=== PATIENT | female | born 1945 | race Caucasian/White ===

== ENCOUNTER 2017-03-11 18:35 | Observation (INO) | payer MEDICARE ==
[2017-03-11 19:03] LABS: Mean Cell Volume 73.4 fl (78-100); Mean Corpuscular Hemoglobin 22.2 pg (26-32); Mean Platelet Volume 8.5 fl (6-9.5); Platelet Count 431 K/mm3 (150-450); Red Cell Distribution Width 20.4 % (11.5-14.0); White Blood Count 14.3 K/mm3 (4.0-10.5)
[2017-03-11 19:06] LABS: VBG BASE EXCESS 5.2 (-2.0-2.0); VBG CARBOXYHEMOGLOBIN 2.4 % T HGB (0.0-6.9); VBG HCO3- 35.6 meq/L (22-28); VBG HEMOGLOBIN 13.6; VBG O2 SATURATION 53.5 (95-100); VBG POTASSIUM 5.4 (3.5-5.1)
[2017-03-11 19:07] LABS: VBG pH 7.24 (7.32-7.42)
[2017-03-11 19:14] LABS: Bilirubin NEGATIVE (NEGATIVE); Blood NEGATIVE Ery/ul (0-5); COMPLETE URINE MICROSCOPIC? YES; Collection Type CATH; Glucose NEGATIVE (NEGATIVE); Leukocyte Esterase 1+ (NEGATIVE)
[2017-03-11 19:15] LABS: ADD URINE CULTURE? YES (NO); Bacteria MANY /HPF (NEGATIVE); Epithelial Cells FEW /HPF (FEW); WBC 15-25 /HPF (0-5)
[2017-03-11] MEDS ORDERED: DUONEB 0.5-3 MG/3 ml Neb IH ONE ×2 (19:20)
[2017-03-11] MEDS ORDERED: D50W 50 ml Abboject IV ONE ×2 (19:21→19:25)
[2017-03-11] MEDS ORDERED: Sodium Chloride 0.9% 1000 ML 1,000 ML ONE (19:24)
--- NOTE | 2017-03-11 19:29 | ERPHSYRPT ---
- History of Present Illness Time Seen by Provider: 03/11/17 18:45 Source: patient Exam Limitations: no limitations Patient Subjective Stated Complaint: PT CALLED EMS TO SCENE DUE TO LOW BLOOD SUGAR-IN THE 50'S-PT ATE JELLY ET PEANUT BETTER-FSBS 66-UPON ARRIVAL PT WAS SOB- LOW SPO2-PT REPORTS DIARRHEA FOR THE LAST FEW DAYS Triage Nursing Assessment: PT PALE WARM ET [id number] TO ANSWER QUESTIONS- PT BECOMES WINDED WITH A FULL SENTENCE OR MOVEMENT-NO RETRACTIONS NOTED-PT DENIES PAIN-PT STATES SHE WAS GIVEN AN ANTIOBIOTIC FOR UTI BUT HAS NOT STARTED TAKING IT YET Physician History: 71-year-old white female brought by medics with complaints of low blood sugars to 50 at home patient was noted to be somewhat sleepy medics were summoned to the patient ate peanut butter and jelly arrives with a blood sugar of 66. Patient currently alert patient did have oxygen saturation down into the 80s. Patient states she has been having wheezing cough or shortness of breath for several days diarrhea for several days she denies any chest pain she denies any fevers she has no abdominal pain nausea or vomiting. Past medical history includes asthma, angina, high blood pressure anxiety, depression, diabetes mellitus past surgical history includes.tonsillectomy and adenoidectomy and parathyroid surgery Timing/Duration: day(s) (2-3 days short of breath diarrheah, today decreased blood sugar) Severity: moderate Modifying Factors: Improves With: nothing Associated Symptoms: shortness of breath, cough, malaise, No nausea, No vomiting , No abdominal pain, No heartburn, No diaphoresis, No chills, No chest pain, No fever, No headaches, No loss of appetite, No rash, No syncope, No seizure, No weakness Allergies/Adverse Reactions: codeine Allergy (Intermediate, Verified 03/11/17 18:40) Hives Home Medications: Albuterol Sulfate [Ventolin Hfa] 8 gm IH TID 03/11/17 [History] Alprazolam [Xanax Xr] 0.5 mg PO TID 03/11/17 [History] Fluticasone/Salmeterol [Advair 250-50 Diskus] 1 each IH UD 03/11/17 [History] Furosemide 40 mg [Lasix 40 MG] 40 mg PO DAILY 03/11/17 [History] Glimepiride [Amaryl] 1 mg PO DAILY 03/11/17 [History] Levothyroxine Sodium 25 Mcg [Synthroid 25 Mcg] 25 mcg PO DAILY 03/11/17 [ History] Linagliptin [Tradjenta] 5 mg PO DAILY 03/11/17 [History] Lisinopril 10 mg [Zestril 10 MG] 10 mg PO DAILY 03/11/17 [History] Meloxicam 7.5 mg PO BID 03/11/17 [History] Metformin HCl [Metformin HCl ER] 1,000 mg PO BID 03/11/17 [History] Metoprolol Succinate 50 mg [Toprol Xl 50 MG] 50 mg PO DAILY 03/11/17 [ History] Montelukast Sodium 10 mg [Singulair 10 MG] 10 mg PO DAILY 03/11/17 [History] Paroxetine HCl [Paxil] 30 mg PO DAILY 03/11/17 [History] Potassium Chloride 10 Meq Tab* [Klor Con 10 MEQ] 10 meq PO DAILY 03/11/17 [ History] Simvastatin 20Mg [Zocor 20Mg] 20 mg PO DAILY 03/11/17 [History] Tolterodine Tartrate 2 mg [Detrol 2 MG] 2 mg PO DAILY 03/11/17 [History] Verapamil HCl [Verapamil ER] 240 mg PO DAILY 03/11/17 [History] Hx Tetanus, Diphtheria Vaccination/Date Given: No Hx Influenza Vaccination/Date Given: Yes (2015) Hx Pneumococcal Vaccination/Date Given: No Immunizations Up to Date: Yes - Review of Systems Constitutional: Malaise, No Fever, No Chills Eyes: No Symptoms Ears, Nose, & Throat: No Symptoms Respiratory: Cough, Dyspnea, Wheezing, No Cyanosis, No Dyspnea on Exertion (BYERS) Cardiac: No Chest Pain, No Edema, No Syncope Abdominal/Gastrointestinal: Diarrhea, No Abdominal Pain, No Nausea, No Vomiting , No Constipation, No Hematemesis, No Hematochezia, No Melena, No Dysphagia, No Appetite Changes Genitourinary Symptoms: No Dysuria Musculoskeletal: No Back Pain, No Neck Pain Skin: No Rash Neurological: Other (patient sleepy at home just prior to arrival with low blood sugars), No Dizziness, No Focal Weakness, No Sensory Changes Psychological: No Symptoms Endocrine: No Symptoms All Other Systems: Reviewed and Negative - Past Medical History Pertinent Past Medical History: Yes Cardiac History: Angina, Hypertension Respiratory History: Asthma Psycho-Social History: Anxiety, Depression - Past Surgical History Past Surgical History: Yes Other Surgical History: PARATHYROID - Social History Smoking Status: Never smoker Exposure to second hand smoke: No Drug Use: none Patient Lives Alone: No - Nursing Vital Signs Nursing Vital Signs: Initial Vital Signs Temperature 97.5 F 03/11/17 18:50 Pulse Rate 91 H 03/11/17 18:50 Respiratory Rate 24 03/11/17 18:50 Blood Pressure 145/76 03/11/17 18:50 O2 Sat by Pulse Oximetry 80 L 03/11/17 18:50 Pain Scale Pain Intensity 6 - Physical Exam General Appearance: no apparent distress, alert, other (morbidly obese white female alert oriented x 3) Eye Exam: PERRL/EOMI, eyes nml inspection Ears, Nose, Throat Exam: normal ENT inspection, TMs normal, pharynx normal, moist mucous membranes Neck Exam: normal inspection, non-tender, supple, full range of motion Respiratory Exam: diminished breath sounds Cardiovascular Exam: regular rate/rhythm, normal heart sounds, normal peripheral pulses Gastrointestinal/Abdomen Exam: soft, normal bowel sounds, No tenderness, No mass Back Exam: normal inspection, normal range of motion, No CVA tenderness, No vertebral tenderness Extremity Exam: normal inspection, normal range of motion, pelvis stable Neurologic Exam: alert, oriented x 3, cooperative, normal mood/affect, nml cerebellar function, nml station & gait, sensation nml, No motor deficits Skin Exam: normal color, warm, dry, No rash SpO2 Interpretation: normal (80%) SpO2: 80 Oxygen Delivery: Nasal Cannula - Course Nursing assessment & vital signs reviewed: Yes EKG Interpreted by Me: RATE (91 bpm), Sinus Rhythm, 1st degree AV Block, Other ( EKG sinus rhythm with first-degree AV block, normal axis no acute ST or T wave changes) - Radiology Exams Chest X-ray Interpretation: Interpreted by me, Other (decreasedinspiratory phase . Changes secondary to obesity, possible mild failure) Ordered Tests: Active Orders 24 hr Category Date Time Status Accucheck STAT Care 03/11/17 19:13 Active Blow Down Helper STAT Care 03/11/17 18:46 Active Cath for Specimen-Straight STAT Care 03/11/17 18:46 Active EKG-ER Only STAT Care 03/11/17 18:45 Active IV Insertion STAT Care 03/11/17 18:45 Active Oxygen-ED Only NASAL CANNULA 5 lpm Care 03/11/17 18:48 Active Pulse Oximetry (ED) STAT Care 03/11/17 18:45 Active CHEST 1 VIEW (PORTABLE) Stat Exams 03/11/17 18:45 Taken BLOOD CULTURE Stat Lab 03/11/17 19:40 Received CBC W DIFF Stat Lab 03/11/17 18:50 Completed CMP Stat Lab 03/11/17 18:50 Completed CULTURE,SPUTUM Stat Lab 03/11/17 19:23 Uncollected CULTURE,URINE Stat Lab 03/11/17 18:58 Received D-DIMER QUANTITATION Stat Lab 03/11/17 18:50 Completed Lactic Acid Stat Lab 03/11/17 18:59 Completed Manual Differential NC Stat Lab 03/11/17 18:50 Completed NT PRO BNP Stat Lab 03/11/17 18:50 Completed PROTIME WITH INR Stat Lab 03/11/17 20:01 Ordered PTT Stat Lab 03/11/17 20:01 Ordered TROPONIN Q3H Lab 03/11/17 18:50 Completed TROPONIN Q3H Lab 03/11/17 21:45 Ordered TROPONIN Q3H Lab 03/12/17 00:45 Ordered TROPONIN Q3H Lab 03/12/17 03:45 Ordered TROPONIN Q3H Lab 03/12/17 06:45 Ordered UA W/ MICROSCOPIC Stat Lab 03/11/17 18:58 Completed VENOUS BLOOD GAS Stat Lab 03/11/17 18:45 Completed Respiratory Nebulizer STAT RT 03/11/17 19:20 Completed Medication Summary Generic Name Dose Route Start Last Admin Trade Name Freq PRN Reason Stop Dose Admin Enoxaparin Sodium 140 mg 03/11/17 20:15 Enoxaparin Sodium 1 mg/kg (140 mg) 04/10/17 20:14 SQ Q12H SONYA Sodium Chloride 1,000 mls @ 100 mls/hr 03/11/17 19:30 03/11/17 19:54 Sodium Chloride 0.9% 1000 Ml IV 04/10/17 19:29 100 mls/hr .Q10H SONYA Administration Discontinued Medications Generic Name Dose Route Start Last Admin Trade Name Freq PRN Reason Stop Dose Admin Albuterol/Ipratropium 3 ml 03/11/17 19:20 03/11/17 19:28 Duoneb 0.5-3 Mg/3 Ml Neb IH 03/11/17 19:21 3 ml STAT ONE Administration Albuterol/Ipratropium Confirm 03/11/17 19:20 Duoneb 0.5-3 Mg/3 Ml Neb Administered 03/11/17 19:21 Dose 3 ml IH .STK-MED ONE Dextrose 50 ml 03/11/17 19:21 03/11/17 19:54 D50w 50 Ml Abboject IV 03/11/17 19:22 50 ml STAT ONE Administration Dextrose Confirm 03/11/17 19:25 D50w 50 Ml Abboject Administered 03/11/17 19:26 Dose 50 ml IV .STK-MED ONE Furosemide 40 mg 03/11/17 19:57 03/11/17 20:01 Lasix 40 Mg/4 Ml IV 03/11/17 19:58 40 mg STAT ONE Administration Furosemide Confirm 03/11/17 20:00 Lasix 40 Mg/4 Ml Administered 03/11/17 20:01 Dose 40 mg .ROUTE .STK-MED ONE Ceftriaxone Sodium/Dextrose 1 g in 50 mls @ 100 mls/hr 03/11/17 19:32 19:48 Rocephin 1 Gm-D5w 50 Ml Bag IV 03/11/17 20:01 100 mls/hr STAT STA Administration Ceftriaxone Sodium/Dextrose Confirm 03/11/17 19:45 Rocephin 1 Gm-D5w 50 Ml Bag Administered 03/11/17 19:46 Dose 1 g in 50 mls @ ud IV .STK-MED ONE Lab/Rad Data: Laboratory Result Diagrams 03/11/17 18:50 03/11/17 18:50 Laboratory Results 03/11/17 03/11/17 03/11/17 Range/Units 18:59 18:58 18:50 WBC (4.0-10.5) K/mm3 RBC (4.1-5.4) M/mm3 Hgb (12.0-16.0) gm/dl Hct (35-47) % MCV (78-100) fl MCH (26-32) pg MCHC (32-36) g/dl RDW (11.5-14.0) % Plt Count (150-450) K/mm3 MPV (6-9.5) fl D-Dimer 1540 H* (0-500) ng/mL VBG pH (7.32-7.42) VBG pCO2 at Pat Temp (42-55) mm/Hg VBG pO2 at Pat Temp (25-40) mm/Hg VBG HCO3 (22-28) meq/L VBG O2 Sat (Susan) (95-100) VBG Base Excess (-2.0-2.0) VBG Hemoglobin VBG Carboxyhemoglobin (0.0-6.9) % T HGB POC Potassium (3.5-5.1) Sodium (136-145) mEq/L Potassium (3.5-5.1) mEq/L Chloride (98-107) mEq/L Carbon Dioxide (21-32) mEq/L Anion Gap (5-15) MEQ/L BUN (9-20) mg/dL Creatinine (0.55-1.30) mg/dl Estimated GFR ML/MIN Glucose (70-110) MG/DL Lactic Acid 1.4 (0.4-2.0) Calcium (8.5-10.1) mg/dL Total Bilirubin (0.2-1.0) mg/dL AST (15-37) U/L ALT (12-78) U/L Alkaline Phosphatase (46-116) U/L Troponin I (0.000-0.056) ng/ml NT-Pro-B Natriuret Pep (0-125) pg/ml Serum Total Protein (6.4-8.2) gm/dL Albumin (3.4-5.0) g/dL Ur Collection Type CATH Urine Color YELLOW (YELLOW) Urine Appearance CLOUDY (CLEAR) Urine pH 5.0 (5-6) Ur Specific Herod 1.010 (1.005-1.025) Urine Protein NEGATIVE (Negative) Urine Ketones NEGATIVE (NEGATIVE) Urine Blood NEGATIVE (0-5) Chiki/ul Urine Nitrite POSITIVE (NEGATIVE) Urine Bilirubin NEGATIVE (NEGATIVE) Urine Urobilinogen NORMAL (0-1) mg/dL Ur Leukocyte Esterase 1+ (NEGATIVE) Urine Microscopic WBC 15-25 (0-5) /HPF Ur Epithelial Cells FEW (FEW) /HPF Urine Bacteria MANY (NEGATIVE) /HPF Urine Glucose NEGATIVE (NEGATIVE) mg/dL Specimen Received 03-11-17190903/11/17 03/11/17 03/11/17 Range/Units 18:50 18:50 18:50 WBC 14.3 H (4.0-10.5) K/mm3 RBC 5.80 H (4.1-5.4) M/mm3 Hgb 12.9 (12.0-16.0) gm/dl Hct 42.6 (35-47) % MCV 73.4 L (78-100) fl MCH 22.2 L (26-32) pg MCHC 30.3 L (32-36) g/dl RDW 20.4 H (11.5-14.0) % Plt Count 431 (150-450) K/mm3 MPV 8.5 (6-9.5) fl D-Dimer (0-500) ng/mL VBG pH (7.32-7.42) VBG pCO2 at Pat Temp (42-55) mm/Hg VBG pO2 at Pat Temp (25-40) mm/Hg VBG HCO3 (22-28) meq/L VBG O2 Sat (Susan) (95-100) VBG Base Excess (-2.0-2.0) VBG Hemoglobin VBG Carboxyhemoglobin (0.0-6.9) % T HGB POC Potassium (3.5-5.1) Sodium 125 L (136-145) mEq/L Potassium 5.4 H (3.5-5.1) mEq/L Chloride 88 L (98-107) mEq/L Carbon Dioxide 31.5 (21-32) mEq/L Anion Gap 10.8 (5-15) MEQ/L BUN 18 (9-20) mg/dL Creatinine 1.08 (0.55-1.30) mg/dl Estimated GFR 53 ML/MIN Glucose 46 L* (70-110) MG/DL Lactic Acid (0.4-2.0) Calcium 9.0 (8.5-10.1) mg/dL Total Bilirubin 0.60 (0.2-1.0) mg/dL AST 18 (15-37) U/L ALT 15 (12-78) U/L Alkaline Phosphatase 98 (46-116) U/L Troponin I 0.020 (0.000-0.056) ng/ml NT-Pro-B Natriuret Pep 5580 H (0-125) pg/ml Serum Total Protein 7.1 (6.4-8.2) gm/dL Albumin 3.0 L (3.4-5.0) g/dL Ur Collection Type Urine Color (YELLOW) Urine Appearance (CLEAR) Urine pH (5-6) Ur Specific Herod (1.005-1.025) Urine Protein (Negative) Urine Ketones (NEGATIVE) Urine Blood (0-5) Chiki/ul Urine Nitrite (NEGATIVE) Urine Bilirubin (NEGATIVE) Urine Urobilinogen (0-1) mg/dL Ur Leukocyte Esterase (NEGATIVE) Urine Microscopic WBC (0-5) /HPF Ur Epithelial Cells (FEW) /HPF Urine Bacteria (NEGATIVE) /HPF Urine Glucose (NEGATIVE) mg/dL Specimen Received 03/11/17 Range/Units 18:45 WBC (4.0-10.5) K/mm3 RBC (4.1-5.4) M/mm3 Hgb (12.0-16.0) gm/dl Hct (35-47) % MCV (78-100) fl MCH (26-32) pg MCHC (32-36) g/dl RDW (11.5-14.0) % Plt Count (150-450) K/mm3 MPV (6-9.5) fl D-Dimer (0-500) ng/mL VBG pH 7.24 L* (7.32-7.42) VBG pCO2 at Pat Temp 83 H* (42-55) mm/Hg VBG pO2 at Pat Temp 29 (25-40) mm/Hg VBG HCO3 35.6 H* (22-28) meq/L VBG O2 Sat (Susan) 53.5 L (95-100) VBG Base Excess 5.2 H (-2.0-2.0) VBG Hemoglobin 13.6 VBG Carboxyhemoglobin 2.4 (0.0-6.9) % T HGB POC Potassium 5.4 H (3.5-5.1) Sodium (136-145) mEq/L Potassium (3.5-5.1) mEq/L Chloride (98-107) mEq/L Carbon Dioxide (21-32) mEq/L Anion Gap (5-15) MEQ/L BUN (9-20) mg/dL Creatinine (0.55-1.30) mg/dl Estimated GFR ML/MIN Glucose (70-110) MG/DL Lactic Acid (0.4-2.0) Calcium (8.5-10.1) mg/dL Total Bilirubin (0.2-1.0) mg/dL AST (15-37) U/L ALT (12-78) U/L Alkaline Phosphatase (46-116) U/L Troponin I (0.000-0.056) ng/ml NT-Pro-B Natriuret Pep (0-125) pg/ml Serum Total Protein (6.4-8.2) gm/dL Albumin (3.4-5.0) g/dL Ur Collection Type Urine Color (YELLOW) Urine Appearance (CLEAR) Urine pH (5-6) Ur Specific Herod (1.005-1.025) Urine Protein (Negative) Urine Ketones (NEGATIVE) Urine Blood (0-5) Chiki/ul Urine Nitrite (NEGATIVE) Urine Bilirubin (NEGATIVE) Urine Urobilinogen (0-1) mg/dL Ur Leukocyte Esterase (NEGATIVE) Urine Microscopic WBC (0-5) /HPF Ur Epithelial Cells (FEW) /HPF Urine Bacteria (NEGATIVE) /HPF Urine Glucose (NEGATIVE) mg/dL Specimen Received - Progress Progress: improved Progress Note: 03/11/17 19:29 71-year-old morbidly obese white female with history of asthma, high blood pressure, diabetes, who has had parathyroid surgery. She is brought by medics this afternoon with complaint of a blood sugar down to the 50s patient apparently ate peanut butter and jelly and was noted to have her blood sugar around 66 she arrives alert she was noted to have oxygen saturation in the 80s on arrival. She states that she has been having diarrhea for several days she's had a cough she's been short of breath she's had wheezing she denies any chest pain denies any fevers has no urinary symptoms. Patient apparently triggered sepsis screening she has lactic acid of 1.4, Patient's pH is 7.24 PCO2 83 on venous blood gases, Patient now has a Accu-Chek of 62 Will give patient D50 1 amp began on normal saline at 100 mils per hour order DuoNeb treatment. Chest x-ray has been ordered blood cultures have been ordered Urinalysis shows 15-25 white cells per high-power field Will strongly consider increasing patient's IV fluid rate after x-ray of the chest has been examined and BNP have been obtained Will begin Rocephin 1 g IV 03/11/17 20:09 Patient with elevated d-dimer as well. Unfortunately patient with a pH of 7.24 GFR of 53. Patient on metformin. Patient also with elevated BNP mild the CHF on chest x-ray. Patient's blood sugar is increased him patient was also use blood sugar to 138 after 1 amp of D50. Case is discussed with Dr. Patel. Patient will be admitted to observation telemetry. Patient has been started on Rocephin Will give patient 40 mg of Lasix. Will continue duo neb treatments Lasix. Continue to monitor Accu-Cheks. Will begin Lovenox. Will be for CTA for now and hold metformin. Impression 1 shortness of breath. 2 hypoglycemia 3 COPD with exacerbation 4 CHF 5 UTI - Departure Time of Disposition: 20:12 Departure Disposition: Observation Clinical Impression: Hypoglycemia, Shortness of breath COPD (chronic obstructive pulmonary disease) Qualifiers: COPD type: unspecified COPD Qualified Code(s): J44.9 - Chronic obstructive pulmonary disease, unspecified CHF (congestive heart failure) Qualifiers: Congestive heart failure type: unspecified congestive heart failure type Congestive heart failure chronicity: unspecified congestive heart failure chronicity Qualified Code(s): I50.9 - Heart failure, unspecified UTI (urinary tract infection) Qualifiers: Urinary tract infection type: site unspecified Hematuria presence: without hematuria Qualified Code(s): N39.0 - Urinary tract infection, site not specified Condition: Fair Critical Care Time: No Referrals: HORTENCIA PATEL MD [Primary Care Provider] - Instructions: Chronic Obstructive Pulmonary Disease, Heart Failure
[2017-03-11 19:30] LABS: ANION GAP 10.8 MEQ/L (5-15); BILIRUBIN,TOTAL 0.6 mg/dL (0.2-1.0); Carbon Dioxide 31.5 mEq/L (21-32); Potassium 5.4 mEq/L (3.5-5.1); Total Protein 7.1 gm/dL (6.4-8.2)
[2017-03-11] MEDS ORDERED: Sodium Chloride 0.9% 1000 ML 1,000 ML IV SCH ×2 (19:30→20:47)
[2017-03-11] MEDS ORDERED: ROCEPHIN 1 Gm-D5w 50 ml Bag** 1 G/50 ML IVPB IV STA (19:32)
[2017-03-11] MEDS ORDERED: ROCEPHIN 1 Gm-D5w 50 ml Bag** 1 G/50 ML IVPB IV ONE (19:45)
[2017-03-11] MEDS ORDERED: Lasix 40 MG/4 ML IV ONE (19:57)
[2017-03-11] MEDS ORDERED: Lasix 40 MG/4 ML ONE (20:00)
[2017-03-11 20:09] LABS: INR 1.11 (0.8-3.0); PROTIME 12.4 SECONDS (9.95-12.35)
[2017-03-11 20:10] LABS: PTT 34.6 SECONDS (25.3-37.0)
[2017-03-11] MEDS ORDERED: ENOXAPARIN SODIUM SQ SCH ×2 (20:15→20:47)
[2017-03-11 20:39] LABS: ANISOCYTOSIS 1+; Eosinophil 2 % (0.00-3.0); Microcytosis 1+; Platelet Estimate NORMAL (NORMAL); Polychromasia 1+; Total Cells Counted 100
[2017-03-11] MEDS ORDERED: DUONEB 0.5-3 MG/3 ml Neb IH PRN (20:47)
[2017-03-11] MEDS ORDERED: NovoLOG Insulin SQ PRN (20:47)
[2017-03-11] MEDS: Lasix 40 MG/4 ML IV SCH (22:20)
[2017-03-11] MEDS ORDERED: ENOXAPARIN SODIUM SQ ONE (22:25)
--- NOTE | 2017-03-11 22:49 | XRAY ---
Indication: Short of breath. Comparison: September 02, 2009. Portable apical lordotic chest markedly underinflated accentuating the cardiopulmonary structures. Cardiac decompensation and/or superimposed pneumonia should be ruled out on a clinical basis.
[2017-03-12 06:02] LABS: Mean Cell Volume 77.3 fl (78-100); Mean Corpuscular Hemoglobin 22.3 pg (26-32); Mean Platelet Volume 8.3 fl (6-9.5); Platelet Count 432 K/mm3 (150-450); Red Cell Distribution Width 20.1 % (11.5-14.0); White Blood Count 14.4 K/mm3 (4.0-10.5)
[2017-03-12 06:11] LABS: ALBUMIN 2.8 g/dL (3.4-5.0); ANION GAP 9.5 MEQ/L (5-15); BILIRUBIN,TOTAL 0.4 mg/dL (0.2-1.0); Carbon Dioxide 31.5 mEq/L (21-32); Total Protein 6.8 gm/dL (6.4-8.2)
[2017-03-12 06:13] LABS: Potassium 6.1 mEq/L (3.5-5.1)
[2017-03-12 06:25] LABS: A-aADO2 238; ARTERIAL BLD GAS O2 SATURATION 96.5 % (95-100); ARTERIAL BLOOD GAS BASE EXCESS 0.8 (-2.0-2.0); ARTERIAL BLOOD GAS FIO2 64 %; ARTERIAL BLOOD GAS PO2 82 mmHg (75-100)
[2017-03-12 06:31] LABS: A-aADO2 183; ALLEN TEST OK? YES; ARTERIAL BLD GAS O2 SATURATION 98.8 % (95-100); ARTERIAL BLOOD GAS BASE EXCESS 1.7 (-2.0-2.0); ARTERIAL BLOOD GAS FIO2 60 %; ARTERIAL BLOOD GAS PO2 101 mmHg (75-100); ARTERIAL BLOOD GAS pH 7.09 (7.35-7.45)
[2017-03-12] MEDS ORDERED: Versed 2 MG/2 ML Injection IV ONE (06:44)
[2017-03-12] MEDS ORDERED: VERSED 5 MG/5 ML ONE (06:46)
[2017-03-12] MEDS ORDERED: Advair Hfa 115/21 Common canister IH SCH (07:00)
[2017-03-12] MEDS ORDERED: DUONEB 0.5-3 MG/3 ml Neb IH SCH (07:00)
[2017-03-12] MEDS ORDERED: Versed 50 MG/ 10 Ml MDV*** 50 MG in Sodium Chloride 0.9% 250 ML 240 ML IV SCH (07:15)
[2017-03-12] MEDS ORDERED: VERSED 5 MG/5 ML IV PRN (07:18)
[2017-03-12] MEDS ORDERED: SUBLIMAZE 1000 Mcg/ 20 Ml*** 1,500 MCG in Sodium Chloride 0.9% 150 ML 120 ML IV SCH (07:30)
--- NOTE | 2017-03-12 07:31 | PCM.SSS ---
History of Present Illness - Chief Complaint Chief Complaint: c/o chest congestion, nausea, vomiting, decreased responsiveness for 1-2day History of Present Illness: Ms. Ele Byrne is a 71-year-old white female brought by medics with complaints of low blood sugars to 50 at home patient was noted to be somewhat sleepy medics were summoned to the patient ate peanut butter and jelly arrives with a blood sugar of 66. Patient currently alert patient did have oxygen saturation down into the 80s. Patient states she has been having wheezing cough or shortness of breath for several days diarrhea for several days she denies any chest pain she denies any fevers she has no abdominal pain nausea or vomiting. - Review of Systems Constitutional: Fever, Chills, Lethargy, Malaise, Weakness Eyes: No Symptoms Ears, Nose, & Throat: No Symptoms Respiratory: Cough, Orthopnea, Short Of Breath, Wheezing Cardiac: No Chest Pain, No Edema, No Syncope Abdominal/Gastrointestinal: Nausea, Vomiting, No Abdominal Pain, No Diarrhea Genitourinary Symptoms: Dysuria, Frequency Musculoskeletal: No Back Pain, No Neck Pain Skin: No Rash Neurological: No Dizziness, No Focal Weakness, No Sensory Changes Psychological: No Symptoms Endocrine: No Symptoms Hematologic/Lymphatic: No Symptoms Immunological/Allergic: No Symptoms Medications & Allergies Home Medications: Home Medication List Albuterol Sulfate [Ventolin Hfa] 2 puffs IH QID PRN PRN 03/11/17 [History Confirmed 03/12/17] Alprazolam [Xanax Xr] 0.5 mg PO TID 03/11/17 [History Confirmed 03/12/17] Fluticasone/Salmeterol [Advair 250-50 Diskus] 1 each IH BID 03/11/17 [History Confirmed 03/12/17] Furosemide 40 mg [Lasix 40 MG] 40 mg PO DAILY 03/11/17 [History Confirmed 03/12/17] Glimepiride [Amaryl] 1 mg PO DAILY 03/11/17 [History Confirmed 03/12/17] Levothyroxine Sodium 25 Mcg [Synthroid 25 Mcg] 25 mcg PO DAILY 03/11/17 [ History Confirmed 03/12/17] Linagliptin [Tradjenta] 5 mg PO DAILY 03/11/17 [History Confirmed 03/12/17] Lisinopril 10 mg [Zestril 10 MG] 10 mg PO DAILY 03/11/17 [History Confirmed 03/12/17] Meloxicam 7.5 mg PO BID 03/11/17 [History Confirmed 03/12/17] Metformin HCl [Metformin HCl ER] 1,000 mg PO BID 03/11/17 [History Confirmed ] Metoprolol Succinate 50 mg [Toprol Xl 50 MG] 50 mg PO DAILY 03/11/17 [ History Confirmed 03/12/17] Montelukast Sodium 10 mg [Singulair 10 MG] 10 mg PO DAILY 03/11/17 [History Confirmed 03/12/17] Paroxetine HCl [Paxil] 30 mg PO DAILY 03/11/17 [History Confirmed 03/12/17] Potassium Chloride 10 Meq Tab* [Klor Con 10 MEQ] 10 meq PO BID 03/11/17 [ History Confirmed 03/12/17] Simvastatin 20Mg [Zocor 20Mg] 20 mg PO DAILY 03/11/17 [History Confirmed ] Tolterodine Tartrate 2 mg [Detrol 2 MG] 2 mg PO DAILY 03/11/17 [History Confirmed 03/12/17] Verapamil HCl [Verapamil ER] 240 mg PO DAILY 03/11/17 [History Confirmed ] Allergies/Adverse Reactions: Allergies Allergy/AdvReac Type Severity Reaction Status Date / Time codeine Allergy Intermediate Hives Verified 03/11/17 18:40 - Past Medical History Past Medical History: Yes Neurological History: No Pertinent History ENT History: Cataracts Cardiac History: Angina, Hypertension Respiratory History: Asthma Endocrine Medical History: Diabetes Type II, Hypothyroidism Musculoskelatal History: Arthritis GI Medical History: No Pertinent History History: No Pertinent History Pyscho-Social History: Anxiety, Depression - Female History Are you now?: No - Past Surgical History Past Surgical History: Yes Other Surgical History: PARATHYROID - Social History Smoking Status: Never smoker Exposure to second hand smoke: No Alcohol: None Drug Use: none - Physical Exam Vital Signs: Vital Signs - 24 hr Temp Pulse Resp BP Pulse Ox 03/12/17 04:18 89 28 H 90 L 03/12/17 00:00 97.2 F 96 H 28 H 136/64 91 L 03/11/17 23:34 96 H 20 93 L 03/11/17 21:54 93 H 20 88 L 03/11/17 21:00 97.5 F 97 H 20 131/59 93 L 03/11/17 20:46 97.5 F 97 H 20 131/59 93 L 03/11/17 20:28 96 H 20 151/77 94 L 03/11/17 20:15 80 L 03/11/17 19:56 120 H 20 143/83 97 03/11/17 19:33 98 H 20 148/75 95 03/11/17 19:28 90 23 95 03/11/17 18:55 80 L 03/11/17 18:50 97.5 F 91 H 24 145/76 80 L Oxygen-Last 24 hours O2 Percentage 5 Liters = 40% O2 Percentage 5 Liters = 40% O2 Percentage 5 Liters = 40% Oxygen Flowrate (L/min)-RT 10 Oxygen Flowrate (L/min)-RT 5 General Appearance: moderate distress Neurologic Exam: disoriented, confusion Eye Exam: PERRL/EOMI Ears, Nose, Throat Exam: normal ENT inspection Neck Exam: normal inspection Respiratory Exam: diminished breath sounds, crackles/rales, rhonchi, wheezing Cardiovascular Exam: tachycardia Gastrointestinal/Abdomen Exam: soft Pelvic Exam: not done Extremity Exam: pedal edema Skin Exam: dry Lymphatic Exam: No adenopathy Results - Labs Lab/Micro Results: Accuchecks Accucheck Value: 106 Lab Results-Last 24 Hours 03/11/17 03/12/17 03/12/17 Range/Units 21:50 00:43 04:00 WBC (4.0-10.5) K/mm3 RBC (4.1-5.4) M/mm3 Hgb (12.0-16.0) gm/dl Hct (35-47) % MCV (78-100) fl MCH (26-32) pg MCHC (32-36) g/dl RDW (11.5-14.0) % Plt Count (150-450) K/mm3 MPV (6-9.5) fl Puncture Site pCO2 (35-45) mmHg pO2 (75-100) mmHg Base Excess (-2.0-2.0) O2 Saturation (94-100) g/dF ABG pH (7.35-7.45) ABG HCO3 (22-28) ABG O2 Sat (Measured) (95-100) % Alfredo Test A-a Gradient a/A Ratio Hemoglobin Carboxyhemoglobin (0.0-6.9) % THgb Methemoglobin (1.4-1.5) % Potassium (3.5-5.1) Temperature C POC O2 Flow Rate % Sodium (136-145) mEq/L Chloride (98-107) mEq/L Carbon Dioxide (21-32) mEq/L Anion Gap (5-15) MEQ/L BUN (9-20) mg/dL Creatinine (0.55-1.30) mg/dl Estimated GFR ML/MIN Glucose (70-110) MG/DL Calcium (8.5-10.1) mg/dL Total Bilirubin (0.2-1.0) mg/dL AST (15-37) U/L ALT (12-78) U/L Alkaline Phosphatase (46-116) U/L Troponin I < 0.017 < 0.017 0.024 (0.000-0.056) ng/ml Serum Total Protein (6.4-8.2) gm/dL Albumin (3.4-5.0) g/dL 03/12/17 03/12/17 03/12/17 Range/Units 04:30 05:45 05:45 WBC 14.4 H (4.0-10.5) K/mm3 RBC 5.60 H (4.1-5.4) M/mm3 Hgb 12.5 (12.0-16.0) gm/dl Hct 43.3 (35-47) % MCV 77.3 L (78-100) fl MCH 22.3 L (26-32) pg MCHC 28.9 L (32-36) g/dl RDW 20.1 H (11.5-14.0) % Plt Count 432 (150-450) K/mm3 MPV 8.3 (6-9.5) fl Puncture Site Pending pCO2 109 H* (35-45) mmHg pO2 82 (75-100) mmHg Base Excess 0.8 (-2.0-2.0) O2 Saturation 92.8 L (94-100) g/dF ABG pH 7.10 L* (7.35-7.45) ABG HCO3 33.8 H* (22-28) ABG O2 Sat (Measured) 96.5 (95-100) % Alfredo Test Pending A-a Gradient 238 a/A Ratio 0.26 Hemoglobin 13.3 Carboxyhemoglobin 2.5 (0.0-6.9) % THgb Methemoglobin 1.2 L (1.4-1.5) % Potassium 6.0 H 6.1 H* (3.5-5.1) Temperature 37.0 C POC O2 Flow Rate 64 % Sodium 124 L (136-145) mEq/L Chloride 89 L (98-107) mEq/L Carbon Dioxide 31.5 (21-32) mEq/L Anion Gap 9.5 (5-15) MEQ/L BUN 19 (9-20) mg/dL Creatinine 1.29 (0.55-1.30) mg/dl Estimated GFR 44 ML/MIN Glucose 181 H (70-110) MG/DL Calcium 8.7 (8.5-10.1) mg/dL Total Bilirubin 0.40 (0.2-1.0) mg/dL AST 16 (15-37) U/L ALT 12 (12-78) U/L Alkaline Phosphatase 102 (46-116) U/L Troponin I (0.000-0.056) ng/ml Serum Total Protein 6.8 (6.4-8.2) gm/dL Albumin 2.8 L (3.4-5.0) g/dL 03/12/17 Range/Units 06:25 WBC (4.0-10.5) K/mm3 RBC (4.1-5.4) M/mm3 Hgb (12.0-16.0) gm/dl Hct (35-47) % MCV (78-100) fl MCH (26-32) pg MCHC (32-36) g/dl RDW (11.5-14.0) % Plt Count (150-450) K/mm3 MPV (6-9.5) fl Puncture Site LEFT BRACHIAL pCO2 115 H* (35-45) mmHg pO2 101 H (75-100) mmHg Base Excess 1.7 (-2.0-2.0) O2 Saturation 95.3 (94-100) g/dF ABG pH 7.09 L* (7.35-7.45) ABG HCO3 34.9 H* (22-28) ABG O2 Sat (Measured) 98.8 (95-100) % Alfredo Test YES A-a Gradient 183 a/A Ratio 0.36 Hemoglobin 12.7 Carboxyhemoglobin 2.5 (0.0-6.9) % THgb Methemoglobin 1.0 L (1.4-1.5) % Potassium 5.7 H (3.5-5.1) Temperature 37.0 C POC O2 Flow Rate 60 % Sodium (136-145) mEq/L Chloride (98-107) mEq/L Carbon Dioxide (21-32) mEq/L Anion Gap (5-15) MEQ/L BUN (9-20) mg/dL Creatinine (0.55-1.30) mg/dl Estimated GFR ML/MIN Glucose (70-110) MG/DL Calcium (8.5-10.1) mg/dL Total Bilirubin (0.2-1.0) mg/dL AST (15-37) U/L ALT (12-78) U/L Alkaline Phosphatase (46-116) U/L Troponin I (0.000-0.056) ng/ml Serum Total Protein (6.4-8.2) gm/dL Albumin (3.4-5.0) g/dL Accuchecks Accucheck Value: 106 - Radiology Impressions Radiology Exams & Impressions: Radiology Procedures Category Date Time Status CHEST 1 VIEW (PORTABLE) Stat Exams 03/12/17 07:02 Taken Portable apical lordotic chest markedly underinflated accentuating the cardiopulmonary structures. Cardiac decompensation and/or superimposed pneumonia should be ruled out on a clinical basis - Other Procedures and Tests Respiratory Therapy 03/12/17 07:00 Respiratory MDI BID neb [Respiratory Nebulizer] BID Assessment/Plan (1) Acute respiratory failure with hypercapnia Current Visit: Yes Status: Acute Assessment & Plan: 71-year-old patient initially came to the ER with hypoglycemia and respiratory distress. Initial d-dimer value was elevated, but due to acute renal insufficiency. We we are unable to do pulmonary CAT scan to rule out pulmonary embolism, so patient was started on therapeutic doses of Lovenox. 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 Patient was intubated and put on ventilator support. Plan to transfer patient to [facility] in ICU for further care. Code(s): J96.02 - ACUTE RESPIRATORY FAILURE WITH HYPERCAPNIA (2) Hypoglycemia associated with type 2 diabetes mellitus Current Visit: Yes Status: Acute Assessment & Plan: we will follow Accu-Cheks. Code(s): E11.649 - TYPE 2 DIABETES MELLITUS WITH HYPOGLYCEMIA WITHOUT COMA (3) Pulmonary embolism with acute cor pulmonale Current Visit: Yes Status: Acute Qualifiers: Chronicity: acute Assessment & Plan: patient is on therapeutic dose of LOVENOX, PATIENT IS ALSO ON VENTILATOR SUPPORT. Code(s): I26.09 - OTHER PULMONARY EMBOLISM WITH ACUTE COR PULMONALE (4) Acute kidney failure Current Visit: Yes Status: Acute Qualifiers: Acute renal failure type: unspecified Qualified Code(s): N17.9 - Acute kidney failure, unspecified Assessment & Plan: Patient activated of failure is probably due to dehydration as well as some chronic renal insufficiency due to diabetes. Will get nephrology on consult. Once patient get transferred to [facility]. (5) Type 2 diabetes mellitus Current Visit: Yes Status: Acute Qualifiers: Diabetes mellitus complication status: with hypoglycemia Diabetes mellitus complication detail: without coma Diabetes mellitus half-way insulin use: without technician terminal and repeater use Qualified Code(s): E11.649 - Type 2 diabetes mellitus with hypoglycemia without coma (6) COPD (chronic obstructive pulmonary disease) Current Visit: Yes Status: Chronic Qualifiers: COPD type: unspecified COPD Qualified Code(s): J44.9 - Chronic obstructive pulmonary disease, unspecified (7) UTI (urinary tract infection) Current Visit: Yes Status: Acute Qualifiers: Urinary tract infection type: site unspecified Hematuria presence: without hematuria Qualified Code(s): N39.0 - Urinary tract infection, site not specified Assessment & Plan: we will start patient's on IV antibiotics. Code(s): N39.0 - URINARY TRACT INFECTION, SITE NOT SPECIFIED Hospital Summary - Hospital Course Hospital Course: Patient initially admitted on the regular floor with diagnosis of hypoglycemia, acute urinary tract infection. Afterward patient's d-dimer value was found to be elevated, so considering that patient was treated as acute pulmonary embolism with 1 mg per KG Lovenox. Due to patient's poor renal function CAT scan of the chest to rule out pulmonary embolism was not done. Patient was put on BiPAP, but patient was becoming more and more hypercapnic. The patient is intubated and will be transferred to ICU at [facility] for further care. - Vitals & Intake/Output Vital Signs: Vital Signs Temperature 97.2 F 03/12/17 00:00 Pulse Rate 89 03/12/17 04:18 Respiratory Rate 28 H 03/12/17 04:18 Blood Pressure 136/64 03/12/17 00:00 O2 Sat by Pulse Oximetry 90 L 03/12/17 04:18 Oxygen-Last Documented O2 Percentage 5 Liters = 40% Intake & Output: Intake & Output 03/09/17 03/10/17 03/11/17 03/12/17 11:59 11:59 11:59 11:59 Weight 165.879 kg - Lab Result Diagrams: 03/12/17 05:45 03/12/17 05:45 Lab Results-Last 24 Hrs: Accuchecks Accucheck Value: 106 Lab Results-Last 24 Hours 03/11/17 03/12/17 03/12/17 Range/Units 21:50 00:43 04:00 WBC (4.0-10.5) K/mm3 RBC (4.1-5.4) M/mm3 Hgb (12.0-16.0) gm/dl Hct (35-47) % MCV (78-100) fl MCH (26-32) pg MCHC (32-36) g/dl RDW (11.5-14.0) % Plt Count (150-450) K/mm3 MPV (6-9.5) fl Puncture Site pCO2 (35-45) mmHg pO2 (75-100) mmHg Base Excess (-2.0-2.0) O2 Saturation (94-100) g/dF ABG pH (7.35-7.45) ABG HCO3 (22-28) ABG O2 Sat (Measured) (95-100) % Alfredo Test A-a Gradient a/A Ratio Hemoglobin Carboxyhemoglobin (0.0-6.9) % THgb Methemoglobin (1.4-1.5) % Potassium (3.5-5.1) Temperature C POC O2 Flow Rate % Sodium (136-145) mEq/L Chloride (98-107) mEq/L Carbon Dioxide (21-32) mEq/L Anion Gap (5-15) MEQ/L BUN (9-20) mg/dL Creatinine (0.55-1.30) mg/dl Estimated GFR ML/MIN Glucose (70-110) MG/DL Calcium (8.5-10.1) mg/dL Total Bilirubin (0.2-1.0) mg/dL AST (15-37) U/L ALT (12-78) U/L Alkaline Phosphatase (46-116) U/L Troponin I < 0.017 < 0.017 0.024 (0.000-0.056) ng/ml Serum Total Protein (6.4-8.2) gm/dL Albumin (3.4-5.0) g/dL 03/12/17 03/12/17 03/12/17 Range/Units 04:30 05:45 05:45 WBC 14.4 H (4.0-10.5) K/mm3 RBC 5.60 H (4.1-5.4) M/mm3 Hgb 12.5 (12.0-16.0) gm/dl Hct 43.3 (35-47) % MCV 77.3 L (78-100) fl MCH 22.3 L (26-32) pg MCHC 28.9 L (32-36) g/dl RDW 20.1 H (11.5-14.0) % Plt Count 432 (150-450) K/mm3 MPV 8.3 (6-9.5) fl Puncture Site Pending pCO2 109 H* (35-45) mmHg pO2 82 (75-100) mmHg Base Excess 0.8 (-2.0-2.0) O2 Saturation 92.8 L (94-100) g/dF ABG pH 7.10 L* (7.35-7.45) ABG HCO3 33.8 H* (22-28) ABG O2 Sat (Measured) 96.5 (95-100) % Alfredo Test Pending A-a Gradient 238 a/A Ratio 0.26 Hemoglobin 13.3 Carboxyhemoglobin 2.5 (0.0-6.9) % THgb Methemoglobin 1.2 L (1.4-1.5) % Potassium 6.0 H 6.1 H* (3.5-5.1) Temperature 37.0 C POC O2 Flow Rate 64 % Sodium 124 L (136-145) mEq/L Chloride 89 L (98-107) mEq/L Carbon Dioxide 31.5 (21-32) mEq/L Anion Gap 9.5 (5-15) MEQ/L BUN 19 (9-20) mg/dL Creatinine 1.29 (0.55-1.30) mg/dl Estimated GFR 44 ML/MIN Glucose 181 H (70-110) MG/DL Calcium 8.7 (8.5-10.1) mg/dL Total Bilirubin 0.40 (0.2-1.0) mg/dL AST 16 (15-37) U/L ALT 12 (12-78) U/L Alkaline Phosphatase 102 (46-116) U/L Troponin I (0.000-0.056) ng/ml Serum Total Protein 6.8 (6.4-8.2) gm/dL Albumin 2.8 L (3.4-5.0) g/dL 03/12/17 Range/Units 06:25 WBC (4.0-10.5) K/mm3 RBC (4.1-5.4) M/mm3 Hgb (12.0-16.0) gm/dl Hct (35-47) % MCV (78-100) fl MCH (26-32) pg MCHC (32-36) g/dl RDW (11.5-14.0) % Plt Count (150-450) K/mm3 MPV (6-9.5) fl Puncture Site LEFT BRACHIAL pCO2 115 H* (35-45) mmHg pO2 101 H (75-100) mmHg Base Excess 1.7 (-2.0-2.0) O2 Saturation 95.3 (94-100) g/dF ABG pH 7.09 L* (7.35-7.45) ABG HCO3 34.9 H* (22-28) ABG O2 Sat (Measured) 98.8 (95-100) % Alfredo Test YES A-a Gradient 183 a/A Ratio 0.36 Hemoglobin 12.7 Carboxyhemoglobin 2.5 (0.0-6.9) % THgb Methemoglobin 1.0 L (1.4-1.5) % Potassium 5.7 H (3.5-5.1) Temperature 37.0 C POC O2 Flow Rate 60 % Sodium (136-145) mEq/L Chloride (98-107) mEq/L Carbon Dioxide (21-32) mEq/L Anion Gap (5-15) MEQ/L BUN (9-20) mg/dL Creatinine (0.55-1.30) mg/dl Estimated GFR ML/MIN Glucose (70-110) MG/DL Calcium (8.5-10.1) mg/dL Total Bilirubin (0.2-1.0) mg/dL AST (15-37) U/L ALT (12-78) U/L Alkaline Phosphatase (46-116) U/L Troponin I (0.000-0.056) ng/ml Serum Total Protein (6.4-8.2) gm/dL Albumin (3.4-5.0) g/dL Micro Results-Entire Visit: Accuchecks Accucheck Value: 106 - Radiology Exams Ordered Rad Exams-Entire Visit: Radiology Procedures Category Date Time Status CHEST 1 VIEW (PORTABLE) Stat Exams 03/12/17 07:02 Taken - Procedures and Test Procedures and Tests throughout Hospitalization: Therapy Orders & Screens 03/11/17 22:07 RT Screen per Nursing Assess ONCE Comment: Protocol Order Physician Instructions: Greater than 3 points order RT Admission Screen Reason For Exam: Triggered on Admission Diagnosis: Hypoglycemia, COPD, CHF, UTI, Increased D-dimer Diagnosis: Hypoglycemia, COPD, CHF, UTI, Increased D-dimer Pneumonia: No Home O2: No Asthma: Yes CHF: Yes Home CPAP/BIPAP: No Home Nebs/MDI: Yes Total Points: 12 03/12/17 04:55 BiPap/CPAP Assessment STAT Comment: Diagnosis: Hypoglycemia, COPD, CHF, UTI, Increased D-dimer 03/12/17 07:00 Respiratory MDI BID Comment: Diagnosis: Hypoglycemia, COPD, CHF, UTI, Increased D-dimer neb [Respiratory Nebulizer] BID Comment: PER HM USE DUO BID Diagnosis: Hypoglycemia, COPD, CHF, UTI, Increased D-dimer - Discharge Discharge Date: 03/12/17 Disposition: DC TO OTHER HOSP Condition: Fair Prescriptions: No Action Albuterol Sulfate [Ventolin Hfa] 2 puffs IH QID PRN PRN PRN Reason: Shortness Of Breath/Wheezing Tolterodine Tartrate 2 mg [Detrol 2 MG] 2 mg PO DAILY Alprazolam [Xanax Xr] 0.5 mg PO TID Furosemide 40 mg [Lasix 40 MG] 40 mg PO DAILY Meloxicam 7.5 mg PO BID Lisinopril 10 mg [Zestril 10 MG] 10 mg PO DAILY Verapamil HCl [Verapamil ER] 240 mg PO DAILY Paroxetine HCl [Paxil] 30 mg PO DAILY Simvastatin 20Mg [Zocor 20Mg] 20 mg PO DAILY Glimepiride [Amaryl] 1 mg PO DAILY Linagliptin [Tradjenta] 5 mg PO DAILY Montelukast Sodium 10 mg [Singulair 10 MG] 10 mg PO DAILY Potassium Chloride 10 Meq Tab* [Klor Con 10 MEQ] 10 meq PO BID Metformin HCl [Metformin HCl ER] 1,000 mg PO BID Metoprolol Succinate 50 mg [Toprol Xl 50 MG] 50 mg PO DAILY Levothyroxine Sodium 25 Mcg [Synthroid 25 Mcg] 25 mcg PO DAILY Fluticasone/Salmeterol [Advair 250-50 Diskus] 1 each IH BID Instructions: Heart Failure, Chronic Obstructive Pulmonary Disease Follow up with: HORTENCIA PATEL MD [Primary Care Provider] -
[2017-03-12 07:37] LABS: A-aADO2 164; ARTERIAL BLD GAS O2 SATURATION 96.9 % (95-100); ARTERIAL BLD GAS TIDAL VOLUME 450 cc; ARTERIAL BLOOD GAS BASE EXCESS 2.6 (-2.0-2.0); ARTERIAL BLOOD GAS FIO2 50 %; ARTERIAL BLOOD GAS PO2 80 mmHg (75-100)
[2017-03-12 07:38] LABS: ARTERIAL BLOOD GAS pH 7.18 (7.35-7.45)
[2017-03-12 08:08] LABS: ANISOCYTOSIS 1+; BAND 1 % (0.0-2.0); Hypochromia 1+; Nucleated Red Blood Cell 1 %; Platelet Estimate NORMAL (NORMAL); Polychromasia 1+; Total Cells Counted 100; Toxic Granulation 1+
[2017-03-12 08:09] LABS: Basophilic Stippling 1+
[2017-03-12] MEDS: Lasix 40 MG/4 ML IV SCH (08:37)
[2017-03-12 08:54] VITALS: BP 102/72; PULSE 88; O2SAT 99
[2017-03-12] MEDS ORDERED: ENOXAPARIN SODIUM SQ SCH (10:00)
[2017-03-12 11:16] LABS: Collection Type CATH; Leukocyte Esterase TRACE (NEGATIVE)
[2017-03-12 11:17] LABS: Bacteria MODERATE /HPF (NEGATIVE); Bilirubin NEGATIVE (NEGATIVE); Blood 50 Ery/ul (0-5); COMPLETE URINE MICROSCOPIC? YES; Epithelial Cells FEW /HPF (FEW); Glucose NEGATIVE (NEGATIVE); WBC 15-25 /HPF (0-5)
[2017-03-12] MEDS ORDERED: ROCEPHIN 1 Gm-D5w 50 ml Bag** 1 G/50 ML IVPB IV SCH (20:00)
--- NOTE | 2017-03-12 22:01 | XRAY ---
Indication: Intubation. Respiratory distress. Comparison: One day earlier. Portable chest slightly better inflated with new endotracheal tube tip 2 cm above the sunny and new NG tube traversing the chest with the tip in the left upper quadrant abdomen presumed stomach. There is right hemidiaphragm elevation. No focal infiltrate, consolidation, or large effusion. Heart is within normal limits for AP portable technique. Impression: 1. Endotracheal tube and NG tube in good position. 2. Right hemidiaphragm elevation. No acute cardiopulmonary abnormalities. Comment: Preliminary interpretation was made by [facility]. No discrepancy.
[2017-03-13 05:12] LABS: ALLEN TEST OK? YES
== END 2017-03-12 08:55 ==
LOC: ED 18:35 → MED SURG 20:38 → ICU 03-12 06:00
PROVIDERS: ADMIT General Practice; ATTEND General Practice
DX: J96.02 Acute respiratory failure with hypercapnia (principal); E11.649 Type 2 diabetes mellitus with hypoglycemia without coma; I26.09 Other pulmonary embolism with acute cor pulmonale; N17.9 Acute kidney failure, unspecified; I10 Essential (primary) hypertension; J44.9 Chronic obstructive pulmonary disease, unspecified; N39.0 Urinary tract infection, site not specified; R19.7 Diarrhea, unspecified
CPT/HCPCS: 82962 ×3; 93268 ×2; 93041; 96374; 96365; 99285; 96360; 96361; 96375; 93005; 87040; 81000 ×2; 85610; 85730; 36415 ×2; 83880; 87186; 85379; 85025 ×2; 87077; 80053 ×2; 84484 ×2; 87086 ×2; 71010 ×2; 94002 ×2; 31500; 82803; 82375; 36600; 82805; 94640 ×3; 94760; 83605; P9612; 36000; G0378; J0696; J1650; J1940; J2250; J3010; A9270-GY